=== PATIENT | female | born 1945 | race Caucasian/White ===

== ENCOUNTER → 2024-11-18 | Outpatient (CLI) | payer BC ==
--- NOTE | 2024-11-18 15:33 | US ---
EXAMINATION TYPE: US venous doppler duplex UE RT DATE OF EXAM: 11/18/2024 COMPARISON: NONE CLINICAL INDICATION: Female, 79 years old with history of R22.31 LOCALIZED SWELLING, MASS AND LUMP, R IGHT UP; right arm swelling, cancer pt TECHNIQUE: Grayscale, color Doppler and spectral Doppler imaging of the upper extremity. SIDE PERFORMED: Right VESSELS IMAGED: IJV Subclavian Vein Axilla Vein Brachial Vein(s) Radial Paired Veins Ulnar Paired Veins Cephalic Vein* Basilic Vein* (*superficial vessels) FINDINGS: Right Arm: internal echoes with no flow and did not compress, seen from axillary branch of the brachi al and basilic extending through subclavian vein and up into jugular vein. There is color flow identi fied within the cephalic vein from retro flow. Color flow with compressibility of the cephalic vein. There is compressibility of the right ulnar and radial veins. Left message at Dr Rhodes's office. IMPRESSION: Deep venous thrombosis of the right upper extremity from the axillary vein from the branching of the basilic and brachial veins with extension into the subclavian and into the jugular vein. [facility], , 11/18/2024 3:30 PM
--- NOTE | 2024-11-18 15:35 | US ---
EXAMINATION TYPE: US mass soft tissue chest/back DATE OF EXAM: 11/18/2024 COMPARISON: PET/CT 12/10/2022 CLINICAL INDICATION: Female, 79 years old with history of assess port for clot; ASSESS PORT IN RIGHT UPPER CHEST, SWELLING TECHNIQUE: SOFT TISSUE SCAN FINDINGS/IMPRESSION: Right chest wall port identified. This creates shadowing which limits evaluation . No color flow identified in this region. There is small surrounding fluid suggested. Recommend port ogram if there is continued concern for thrombus. [facility], , 11/18/2024 3:32 PM
== END | disposition home or self-care (01) ==
LOC: RADUSWWP 14:14
PROVIDERS: ATTEND Internal Medicine Hematology & Oncology
DX: I82.621 Acute embolism and thrombosis of deep veins of right upper extremity (principal); I82.C11 Acute embolism and thrombosis of right internal jugular vein